=== PATIENT | male | born 1950 | race Caucasian/White ===

== ENCOUNTER → 2016-11-29 | Outpatient (CLI) | payer BC, MEDICARE | LOC: OD 08:14 | PROVIDERS: ATTEND Urology | DX: N40.1 Benign prostatic hyperplasia with lower urinary tract symptoms (principal) | CPT/HCPCS: 36415; 84153 ==

== ENCOUNTER → 2017-05-30 | Outpatient (CLI) | payer BC, MEDICARE ==
--- NOTE | 2017-05-30 15:49 | RADIOLOGY REPORT (SQ) ---
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 Coronal T2/ HASTE imaging. LIMITATIONS: None. FINDINGS: VISUALIZED UPPER ABDOMEN: Limited evaluation. No acute or suspicious findings suggested. SEGMENTATION: No transitional anatomy. The lowest well-developed disc space is labeled L5-S1. ALIGNMENT: Anatomic. VERTEBRAE: Intact. BONE MARROW: No findings worrisome for aggressive marrow replacement process. Schmorl's node inferio r endplate of L3. DISC SIGNAL: Diffuse decreased T2 weighted intervertebral disc signal at L2-3, and L4-5. Decreased T 2 weighted intervertebral disc signal with disc space loss of height at L5-S1 POSTERIOR ELEMENTS: Generally intact. No pars defect evident. HARDWARE: None in the spine. CORD AND CONUS: Normal in size and signal intensity. Conus at the L2 level. SOFT TISSUES: No aortic aneurysm seen. No bulky retroperitoneal adenopathy or mass. No paraspinal mas s or fluid. T11-12: Mild bilateral facet hypertrophy. No central or foraminal stenosis. T12-L1: Unremarkable L1-L2: No significant spinal stenosis or exit foraminal stenosis. Mild bilateral facet hypertrophy. L2-L3: No significant spinal stenosis or exit foraminal stenosis. Mild bilateral facet hypertrophy L3-L4: Mild diffuse posterior disc bulging is present with mild to moderate bilateral facet and ligam ent hypertrophy causing borderline central canal narrowing. There is mild inferior foraminal narrowi ng without exiting L3 nerve root impingement. L4-L5: Mild diffuse posterior disc bulging is present with a tiny left paracentral disc protrusion/ h erniation with inferior migration of the extruded fragment. Extruded fragment measures about 5 mm in greatest diameter. No significant mass effect on the thecal sac or exiting L4, or proximal L5 nerve roots. Extruded fragment is best shown on axial T2 series 7, image 27 and sagittal image 9. Elsewhere at L4-5, there is minimal bilateral inferior foraminal narrowing without exiting L4 nerve r oot impingement. L5-S1: Mild diffuse posterior disc bulging is present. Mild bilateral facet hypertrophy. No central or foraminal encroachment. SACRUM: Visualized upper sacrum intact. OTHER: No other significant findings. IMPRESSION: Mild diffuse degenerative changes without high-grade central or foraminal encroachment. TECHNICAL DOCUMENTATION: JOB ID: [id number] [employer]- All Rights Reserved
== END ==
LOC: RAD 11:24
PROVIDERS: ATTEND Student in an Organized Health Care Education/Training Program
DX: M51.36 Other intervertebral disc degeneration, lumbar region (principal)
CPT/HCPCS: 72148

== ENCOUNTER → 2017-06-14 | Outpatient (CLI) | payer BC, MEDICARE ==
--- NOTE | 2017-06-14 09:46 | RADIOLOGY REPORT (SQ) ---
EXAM DESCRIPTION: CT CHEST WITHOUT COMPLETED DATE/TIME: 06/14/2017 7:10 am REASON FOR STUDY: COUGH (R05) R05 COUGH COMPARISON: None. TECHNIQUE: CT scan performed of the chest without intravenous contrast. Images reviewed with lung, soft tissue and bone windows. Reconstructed coronal and sagittal MPR images reviewed. All images st ored on PACS. All CT scanners at this facility use dose modulation, iterative reconstruction, and/or weight based d osing when appropriate to reduce radiation dose to as low as reasonably achievable (ALARA). [facility]: Dose Right [facility]: CareDose [facility]: Dose Right [facility]: Teradose 4D [facility]: Smart [employer] RADIATION DOSE: Up-to-date CT equipment and radiation dose reduction techniques were employed. CTDIv ol: 14.5 mGy. DLP: 593 mGy-cm. mGy. LIMITATIONS: No technical limitations. FINDINGS: LUNGS AND PLEURA: Ill-defined ground-glass opacity in the lateral right lower lobe (series 4, image 74) measuring 1.2 cm. Otherwise no masses, infiltrates, pneumothorax. No pleural effusion s, calcifications. There is a small focal defect in the left hemidiaphragm with herniation of abdomi nal fat into the lower chest. This is best demonstrated on coronal series 601, image 79 and sagittal series 602, image 48. HILAR AND MEDIASTINAL STRUCTURES: No identified masses or abnormal nodes. No obvious aneurysm. HEART AND VASCULAR STRUCTURES: No aneurysm. No pericardial effusion. UPPER ABDOMEN: No significant findings. Limited exam. THYROID AND OTHER SOFT TISSUES: No masses. No adenopathy. BONES: No significant finding. HARDWARE: None in the chest. OTHER: No other significant findings. IMPRESSION: 1. ILL-DEFINED GROUND-GLASS OPACITY IN THE LATERAL RIGHT LOWER LOBE MEASURING 1.2 CM. NONSPECIFIC. THIS COULD BE DUE TO FOCAL INFLAMMATION OR INFECTION. CONSIDER FOLLOW-UP BASED ON FLEISCHNER CRITERI A. 2. SMALL FOCAL DEFECT IN THE LEFT HEMIDIAPHRAGM WITH HERNIATION OF ABDOMINAL FAT INTO THE LOWER CHEST . 3. NO OTHER SIGNIFICANT FINDING ON NON-CONTRASTED CHEST CT. COMMENT: Fleischner Criteria for Ground Glass Nodules: >6mm ground glass single nodule: CT 6-12 mo, then CT every 2 yr until 5 yr TECHNICAL DOCUMENTATION: JOB ID: [id number] Quality ID # [id number]: Final reports with documentation of one or more dose reduction techniques (e.g., Au tomated exposure control, adjustment of the mA and/or kV according to patient size, use of iterative reconstruction technique) 2010 [employer]- All Rights Reserved
== END ==
LOC: RAD 06:58
PROVIDERS: ATTEND Allergy & Immunology
DX: R05 Cough (principal)
CPT/HCPCS: 71250

== ENCOUNTER → 2017-08-22 | Outpatient (CLI) | payer BC, MEDICARE ==
--- NOTE | 2017-08-22 17:31 | RADIOLOGY REPORT (SQ) ---
EXAM DESCRIPTION: CT CHEST WITHOUT COMPLETED DATE/TIME: 08/22/2017 3:58 pm REASON FOR STUDY: SOLITARY PULMONARY NODULE R91.1 SOLITARY PULMONARY NODULE COMPARISON: 06/14/2017 TECHNIQUE: CT scan performed of the chest without intravenous contrast. Images reviewed with lung, soft tissue and bone windows. Reconstructed coronal and sagittal MPR images reviewed. All images st ored on PACS. All CT scanners at this facility use dose modulation, iterative reconstruction, and/or weight based d osing when appropriate to reduce radiation dose to as low as reasonably achievable (ALARA). [facility]: Dose Right [facility]: CareDose [facility]: Dose Right [facility]: Teradose 4D [facility]: Smart [employer] RADIATION DOSE: Up-to-date CT equipment and radiation dose reduction techniques were employed. CTDIv ol: 14.9 mGy. DLP: 574 mGy-cm. mGy. LIMITATIONS: No technical limitations. FINDINGS: LUNGS AND PLEURA: No masses, infiltrates, pneumothorax. No pleural effusions, calcificati ons. There is a localized eventration of the left hemidiaphragm containing fat. HILAR AND MEDIASTINAL STRUCTURES: No identified masses or abnormal nodes. No obvious aneurysm. HEART AND VASCULAR STRUCTURES: No aneurysm. No pericardial effusion. UPPER ABDOMEN: No significant findings. Limited exam. THYROID AND OTHER SOFT TISSUES: No masses. No adenopathy. BONES: No significant finding. HARDWARE: None in the chest. OTHER: No other significant findings. IMPRESSION: 1. The small area of ground-glass opacification in the right lower lobe on the earlier study is no longer present. 2. There is a small eventration of the left hemidiaphragm that contains fat. TECHNICAL DOCUMENTATION: JOB ID: [id number] Quality ID # [id number]: Final reports with documentation of one or more dose reduction techniques (e.g., Au tomated exposure control, adjustment of the mA and/or kV according to patient size, use of iterative reconstruction technique) 2010 [employer]- All Rights Reserved
== END ==
LOC: RAD 15:43
PROVIDERS: ATTEND Internal Medicine Critical Care Medicine
DX: R91.1 Solitary pulmonary nodule (principal); R05 Cough; K21.9 Gastro-esophageal reflux disease without esophagitis; J30.9 Allergic rhinitis, unspecified
CPT/HCPCS: 71250

== ENCOUNTER → 2017-12-14 | Outpatient (CLI) | payer BC, MEDICARE ==
[2017-12-16 12:07] LABS: PROSTATE SPECIFIC ANTIGEN 0.5 ng/mL (0.0-4.0); PSA FREE 0.1 ng/mL
== END ==
LOC: OD 16:00
PROVIDERS: ATTEND Urology
DX: N40.1 Benign prostatic hyperplasia with lower urinary tract symptoms (principal)
CPT/HCPCS: 36415; 84154

== ENCOUNTER → 2018-05-24 | Outpatient (CLI) | payer BC, MEDICARE ==
[2018-05-24 08:18] LABS: ABSOLUTE BASOPHILS # (AUTO) 0.1 10^3/uL (0.0-0.2); ABSOLUTE EOSINOPHILS # (AUTO) 0.3 10^3/uL (0.0-0.6); ABSOLUTE LYMPHOCYTES (AUTO) 1.9 10^3/uL (0.5-4.7); ABSOLUTE MONOCYTES (AUTO) 0.5 10^3/uL (0.1-1.4); ABSOLUTE NEUT (AUTO) 3.1 10^3/uL (1.7-8.2); BASOPHILS % (AUTO) 0.9 % (0-2); EOSINOPHILS % (AUTO) 5.7 % (0-6); HEMATOCRIT 43.4 % (37.9-51.0); HEMOGLOBIN 14.9 g/dL (13.5-17.0); MEAN CORPUSCULAR HEMOGLOBIN 32.1 pg (27.0-33.4); MEAN CORPUSCULAR HGB CONC 34.3 g/dL (32.0-36.0); MEAN CORPUSCULAR VOLUME 93 fl (80-97); MONOCYTES % (AUTO) 8.1 % (3-13); PLATELET COUNT 259 10^3/uL (150-450); RED BLOOD COUNT 4.65 10^6/uL (4.35-5.55); RED CELL DISTRIBUTION WIDTH 12.6 % (11.5-14.0); SEGMENTED NEUTROPHILS % (AUTO) 52.3 % (42-78); TOTAL CELLS COUNTED % (AUTO) 100 %; WHITE BLOOD COUNT 5.8 10^3/uL (4.0-10.5)
[2018-05-24 09:02] LABS: ALANINE AMINOTRANSFERASE 29 U/L (21-72); ALKALINE PHOSPHATASE 73 U/L (38-126); ANION GAP 9 (5-19); ASPARTATE AMINO TRANSFERASE 32 U/L (17-59); BILIRUBIN,DIRECT 0.3 mg/dL (0.0-0.4); BILIRUBIN,TOTAL 0.6 mg/dL (0.2-1.3); BLOOD UREA NITROGEN 15 mg/dL (7-20); CARBON DIOXIDE 31 mmol/L (22-30); CHLORIDE 102 mmol/L (98-107); CHOLESTEROL 181.41 mg/dL (0-200); GLUCOSE 99 mg/dL (75-110); POTASSIUM 4.8 mmol/L (3.6-5.0); SODIUM 142.3 mmol/L (137-145); TOTAL PROTEIN 6.7 g/dL (6.3-8.2); TRIGLYCERIDES 121 mg/dL (<150)
[2018-05-24 09:13] LABS: DIRECT LDL 115 mg/dL (<100)
== END ==
LOC: OD 07:30
PROVIDERS: ATTEND Student in an Organized Health Care Education/Training Program
DX: Z00.00 Encounter for general adult medical examination without abnormal findings (principal); E78.2 Mixed hyperlipidemia; E53.8 Deficiency of other specified B group vitamins; E55.9 Vitamin D deficiency, unspecified; Z13.6 Encounter for screening for cardiovascular disorders
CPT/HCPCS: 36415; 80053; 80061; 82306; 82607; 85025

== ENCOUNTER 2018-11-17 20:05 | Emergency (ER) | payer BC, MEDICARE ==
[2018-11-17] MEDS ORDERED: ASPIRIN 81 MG TABLET, CHEWABLE PO ONE (20:52)
[2018-11-17 21:25] LABS: ABSOLUTE BASOPHILS # (AUTO) 0.1 10^3/uL (0.0-0.2); ABSOLUTE EOSINOPHILS # (AUTO) 0.4 10^3/uL (0.0-0.6); ABSOLUTE LYMPHOCYTES (AUTO) 2.5 10^3/uL (0.5-4.7); ABSOLUTE MONOCYTES (AUTO) 0.9 10^3/uL (0.1-1.4); ABSOLUTE NEUT (AUTO) 4.4 10^3/uL (1.7-8.2); BASOPHILS % (AUTO) 0.8 % (0-2); EOSINOPHILS % (AUTO) 5.2 % (0-6); HEMATOCRIT 42.3 % (37.9-51.0); LYMPHOCYTES % (AUTO) 30.4 % (13-45); MEAN CORPUSCULAR HEMOGLOBIN 32.7 pg (27.0-33.4); MEAN CORPUSCULAR HGB CONC 35.4 g/dL (32.0-36.0); MEAN CORPUSCULAR VOLUME 93 fl (80-97); MONOCYTES % (AUTO) 10.4 % (3-13); PLATELET COUNT 290 10^3/uL (150-450); RED BLOOD COUNT 4.57 10^6/uL (4.35-5.55); RED CELL DISTRIBUTION WIDTH 12.5 % (11.5-14.0); SEGMENTED NEUTROPHILS % (AUTO) 53.2 % (42-78); TOTAL CELLS COUNTED % (AUTO) 100 %; WHITE BLOOD COUNT 8.4 10^3/uL (4.0-10.5)
--- NOTE | 2018-11-17 21:32 | RADIOLOGY REPORT (SQ) ---
EXAM DESCRIPTION: XR CHEST 1 VIEW COMPLETED DATE/TME: 11/17/2018 20:52 CLINICAL HISTORY: 68 years, Male, chest pain COMPARISON: EXAM DESCRIPTION: CLINICAL HISTORY: chest pain COMPARISON: None. FINDINGS: Single view of the chest is submitted. Cardiac silhouette is normal. No focal parenchymal or pleural disease. No acute bony abnormality. There is no significant pulmonary vascular engorgement. IMPRESSION: No evidence of acute cardiopulmonary disease.
[2018-11-17 21:46] LABS: ALANINE AMINOTRANSFERASE 25 U/L (21-72); ALBUMIN 4.2 g/dL (3.5-5.0); ALKALINE PHOSPHATASE 68 U/L (38-126); ANION GAP 8 (5-19); ASPARTATE AMINO TRANSFERASE 31 U/L (17-59); BILIRUBIN,DIRECT 0.2 mg/dL (0.0-0.4); BILIRUBIN,TOTAL 0.3 mg/dL (0.2-1.3); BLOOD UREA NITROGEN 19 mg/dL (7-20); CALCIUM 9.3 mg/dL (8.4-10.2); CARBON DIOXIDE 30 mmol/L (22-30); CHLORIDE 100 mmol/L (98-107); CREATINE KINASE 115 U/L (55-170); GLUCOSE 86 mg/dL (75-110); POTASSIUM 4.2 mmol/L (3.6-5.0); SODIUM 137.6 mmol/L (137-145); TOTAL PROTEIN 6.9 g/dL (6.3-8.2)
[2018-11-17 21:57] LABS: CREATINE KINASE MB 0.85 ng/mL (<4.55)
[2018-11-17 22:02] LABS: TROPONIN I < 0.012 ng/mL
[2018-11-18] MEDS ORDERED: METOCLOPRAMIDE HCL ORAL SOLN 10 MG/10 ML UDCUP PO ONE (01:38)
[2018-11-18] MEDS ORDERED: IPRATROPIUM/ALBUTEROL 0.5-2.5 MG/3 ML AMPUL NEB ONE (01:38)
[2018-11-18] MEDS ORDERED: LIDOCAINE 2% VISCOUS SOLN 20 ML UDCUP PO ONE (01:38)
[2018-11-18] MEDS ORDERED: MAG HYDROX/AL HYDROX/SIMETH SUSP 30 ML UDCUP PO ONE (01:38)
--- NOTE | 2018-11-18 01:40 | ER Document Report ---
Addendum entered and electronically signed by ZOYA WILKES FNP 11/18/18 12:23: Course - Re-evaluation Re-evalutation: 11/18/18 Patient's chest x-ray is normal. No infiltrate noted. His laboratory studies are unremarkable. - Vital Signs Vital signs: Temp Pulse Resp BP Pulse Ox 97.9 F 73 15 124/88 H 92 11/17/18 20:18 11/17/18 20:18 11/18/18 02:01 11/18/18 02:01 11/18/18 02:01 - Laboratory Result Diagrams: 11/17/18 20:46 11/17/18 20:46 - EKG Interpretation by Me Additional EKG results interpreted by me: 11/18/18 20:13 Sinus rhythm. Heart rate 74; NC 168; QRS 86; QT 392; QTC 435. No ST elevations or depressions. Original Note: ED General - General Chief Complaint: Chest Pain Stated Complaint: CHEST PRESSURE Time Seen by Provider: 11/18/18 01:32 Notes: Patient is a 68-year-old male who presents to the emergency department with a chief complaint of pressure in his chest. He states he was eating dinner and he felt a piece of food was stuck in his throat. He then took a drink and he continued to feel the same sensation of something being stuck and developed some chest pressure and tightness. He wanted to be safe and presented to the emergency department. Denies nausea, vomiting, projectile vomiting, diarrhea, fever, sinus pressure, or abdominal pain. He has a history of hypertension and hyperlipidemia. TRAVEL OUTSIDE OF THE [place] IN LAST 30 DAYS: No - Related Data Allergies/Adverse Reactions: moxifloxacin HCl [From Avelox] Allergy (Mild, Verified 04/14/15 19:04) pink all over sulfamethoxazole [From Septra] Allergy (Mild, Verified 04/14/15 19:04) itching trimethoprim [From Septra] Allergy (Mild, Verified 04/14/15 19:04) itching levofloxacin [Levofloxacin] Allergy (Unknown, Verified 04/14/15 19:04) Sulfa (Sulfonamide Antibiotics) Allergy (Unknown, Verified 04/14/15 19:04) Past Medical History - Social History Smoking Status: Unknown if Ever Smoked Lives with: Family Family History: Reviewed & Not Pertinent - Past Medical History Cardiac Medical History: Reports: Hx Coronary Artery Disease Denies: Hx Heart Attack, Hx Hypertension Pulmonary Medical History: Reports: Hx Asthma Denies: Hx Bronchitis, Hx COPD, Hx Pneumonia Neurological Medical History: Reports: Hx Seizures - 2012, ONE AND ONLY TIME. Denies: Hx Cerebrovascular Accident Musculoskeletal Medical History: Reports Hx Arthritis - Immunizations Hx Diphtheria, Pertussis, Tetanus Vaccination: Yes Hx Pneumococcal Vaccination: 09/14/13 Review of Systems - Review of Systems Notes: REVIEW OF SYSTEMS: CONSTITUTIONAL : Denies recent illness. Denies recent unintentional weight loss. Denies fever, chills, or sweats. EENT: See HPI CARDIOVASCULAR: See HPI RESPIRATORY: See HPI GASTROINTESTINAL: See HPI GENITOURINARY: Denies difficulty urinating, burning, blood in urine, urgency or frequency. MUSCULOSKELETAL: Denies neck and back pain. Denies joint pain or swelling. SKIN: Denies rash, itchiness, or lesions HEMATOLOGIC : Denies easy bruising or bleeding. LYMPHATIC: Denies swollen, painful, enlarged glands. NEUROLOGICAL: Denies no numbness or tingling denies weakness. Denies headache. Denies altered mental status. Denies alteration in speech. PSYCHIATRIC: Denies stress, anxiety, alteration in sleep patterns, or depress ion. All other systems reviewed and negative. Physical Exam - Vital signs Vitals: Temp Pulse BP Pulse Ox 97.9 F 73 150/81 H 96 11/17/18 20:18 11/17/18 20:18 11/17/18 20:18 11/17/18 20:18 - Notes Notes: PHYSICAL EXAMINATION: GENERAL: Appears well, healthy, well-nourished, no acute distress. HEAD: Normocephalic, atraumatic. EYES: PERRL, conjunctiva normal, all extraocular movements intact, sclera nonicteric ENT: Moist mucous membranes. NECK: Supple, no noticeable swelling, redness, rash. Normal range of motion. LUNGS: Equal breath sounds bilaterally and clear to auscultation. No wheezes rales or rhonchi. CARDIOVASCULAR: S1-S2, regular rate, regular rhythm. Radial pulses 2+, normal. ABDOMEN: Normoactive bowel sounds. Soft, nontender, no guarding, no rebound tenderness, and no masses palpated. EXTREMITIES: Normal strength and range of motion, no pitting or edema. No cyanosis. NEUROLOGICAL: Moves all extremities upon command. Strength 5/5 in all extremities. PSYCH: Normal mood, normal affect. SKIN: Warm, dry. No rash, lesions, ulcerations noted. Normal skin turgor. Course - Re-evaluation Re-evalutation: 11/18/18 01:42 Patient's initial troponin is negative, along with the second. States that he does feel better. He also states that 3 weeks ago he was treated with antibiotics for a possible pneumonia. He has finished his course of antibiotics and at the time of my assessment his oxygen saturation was 89%. He also has wheezes in his right lower lobe. He will be given a DuoNeb treatment. He also be given a GI cocktail for his symptoms. 11/18/18 02:40 I have reassessed the patient and he has complete resolution of his symptoms. His lungs sounds are improved. He states that he has an albuterol inhaler at home. I educated the patient on using his albuterol inhaler every 4-6 hours as needed. I discussed the patient's lab results and diagnostic tests with him. Verbal discharge instructions were given to the patient. They verbalized understanding. They are stable for discharge. Documentation was completed using voice recognition software, therefore there may be some unintended grammatical errors. - Vital Signs Vital signs: Temp Pulse Resp BP Pulse Ox 97.9 F 73 15 124/88 H 92 11/17/18 20:18 11/17/18 20:18 11/18/18 02:01 11/18/18 02:01 11/18/18 02:01 - Laboratory Result Diagrams: 11/17/18 20:46 11/17/18 20:46 Discharge - Discharge Clinical Impression: Chest pressure Condition: Stable Disposition: HOME, SELF-CARE Additional Instructions: You were seen today in the emergency department for chest pressure and something caught in your throat. Your laboratory studies are normal. Your chest x-ray is normal. You are given medication to help you with that. You still have whee zing from the infection you had from your primary care doctor. He received a breathing treatment here in the emergency department. Please continue to take your albuterol inhaler. You may take 2 puffs every 4-6 hours as needed. If you develop a fever greater than 100.4 F, have worsening symptoms, or have symptoms that are worrisome to you, please return to the emergency department. Referrals: ROBBY MC, DO [Primary Care Provider] - Follow up as needed
[2018-11-18 02:17] VITALS: BP 124/88
--- NOTE | 2018-11-18 12:42 | EKG REPORT ---
SEVERITY:- OTHERWISE NORMAL ECG - SINUS RHYTHM LEFT AXIS DEVIATION : Confirmed by: Kaylie Jimenez MD 18-Nov-2018 12:40:59
== END 2018-11-18 02:51 | disposition home or self-care (01) ==
LOC: ER 20:05
DX: R07.89 Other chest pain (principal); R09.89 Other specified symptoms and signs involving the circulatory and respiratory systems; J45.909 Unspecified asthma, uncomplicated; I25.10 Atherosclerotic heart disease of native coronary artery without angina pectoris; Z88.1 Allergy status to other antibiotic agents; Z88.2 Allergy status to sulfonamides
CPT/HCPCS: 93005; 94640; 99285; 36415; 82553; 82550; 85025; 80053; 84484; 71045; 93010; J3490; J7620

== ENCOUNTER → 2018-11-22 | Outpatient (CLI) | payer BC, MEDICARE ==
[2018-11-22 17:21] LABS: ABSOLUTE BASOPHILS # (AUTO) 0.1 10^3/uL (0.0-0.2); ABSOLUTE EOSINOPHILS # (AUTO) 0.5 10^3/uL (0.0-0.6); ABSOLUTE LYMPHOCYTES (AUTO) 2.6 10^3/uL (0.5-4.7); ABSOLUTE MONOCYTES (AUTO) 0.9 10^3/uL (0.1-1.4); ABSOLUTE NEUT (AUTO) 4.2 10^3/uL (1.7-8.2); BASOPHILS % (AUTO) 0.8 % (0-2); EOSINOPHILS % (AUTO) 6.6 % (0-6); HEMATOCRIT 41.5 % (37.9-51.0); HEMOGLOBIN 14.5 g/dL (13.5-17.0); LYMPHOCYTES % (AUTO) 31.2 % (13-45); MEAN CORPUSCULAR HEMOGLOBIN 32.2 pg (27.0-33.4); MEAN CORPUSCULAR HGB CONC 34.9 g/dL (32.0-36.0); MEAN CORPUSCULAR VOLUME 92 fl (80-97); MONOCYTES % (AUTO) 10.5 % (3-13); PLATELET COUNT 255 10^3/uL (150-450); RED CELL DISTRIBUTION WIDTH 12.1 % (11.5-14.0); SEGMENTED NEUTROPHILS % (AUTO) 50.9 % (42-78); TOTAL CELLS COUNTED % (AUTO) 100 %; WHITE BLOOD COUNT 8.2 10^3/uL (4.0-10.5)
== END ==
LOC: OD 16:13
PROVIDERS: ATTEND Student in an Organized Health Care Education/Training Program
DX: J45.50 Severe persistent asthma, uncomplicated (principal)
CPT/HCPCS: 36415; 85025

== ENCOUNTER → 2019-05-30 | Outpatient (CLI) | payer BC, MEDICARE ==
[2019-05-30 08:16] LABS: HEMATOCRIT 43.5 % (37.9-51.0); HEMOGLOBIN 14.8 g/dL (13.5-17.0); MEAN CORPUSCULAR HEMOGLOBIN 31.4 pg (27.0-33.4); MEAN CORPUSCULAR VOLUME 93 fl (80-97); PLATELET COUNT 254 10^3/uL (150-450); RED BLOOD COUNT 4.71 10^6/uL (4.35-5.55); RED CELL DISTRIBUTION WIDTH 12.8 % (11.5-14.0); WHITE BLOOD COUNT 7.5 10^3/uL (4.0-10.5)
[2019-05-30 08:47] LABS: ALANINE AMINOTRANSFERASE 28 U/L (21-72); ALKALINE PHOSPHATASE 65 U/L (38-126); ANION GAP 7 (5-19); ASPARTATE AMINO TRANSFERASE 25 U/L (17-59); BILIRUBIN,DIRECT 0.3 mg/dL (0.0-0.4); BILIRUBIN,TOTAL 0.5 mg/dL (0.2-1.3); BLOOD UREA NITROGEN 19 mg/dL (7-20); CARBON DIOXIDE 30 mmol/L (22-30); CHLORIDE 102 mmol/L (98-107); CHOLESTEROL 210.77 mg/dL (0-200); GLUCOSE 98 mg/dL (75-110); POTASSIUM 4.4 mmol/L (3.6-5.0); TOTAL PROTEIN 6.6 g/dL (6.3-8.2); TRIGLYCERIDES 144 mg/dL (<150)
[2019-05-30 08:57] LABS: DIRECT LDL 139 mg/dL (<100)
== END ==
LOC: OD 07:02
PROVIDERS: ATTEND Physician Assistant
DX: I10 Essential (primary) hypertension (principal); E78.5 Hyperlipidemia, unspecified; N40.0 Benign prostatic hyperplasia without lower urinary tract symptoms; Z13.1 Encounter for screening for diabetes mellitus
CPT/HCPCS: 36415; 80053; 80061; 83036; 84153; 84443; 85027

== ENCOUNTER → 2020-06-03 | Outpatient (CLI) | payer BC, MEDICARE ==
[2020-06-03 07:54] LABS: HEMATOCRIT 42.9 % (37.9-51.0); HEMOGLOBIN 14.9 g/dL (13.5-17.0); MEAN CORPUSCULAR HEMOGLOBIN 32.1 pg (27.0-33.4); MEAN CORPUSCULAR HGB CONC 34.8 g/dL (32.0-36.0); MEAN CORPUSCULAR VOLUME 92 fl (80-97); PLATELET COUNT 252 10^3/uL (150-450); RED BLOOD COUNT 4.64 10^6/uL (4.35-5.55); RED CELL DISTRIBUTION WIDTH 12.7 % (11.5-14.0); WHITE BLOOD COUNT 5.6 10^3/uL (4.0-10.5)
[2020-06-03 08:26] LABS: ALBUMIN 4.4 g/dL (3.5-5.0); ALKALINE PHOSPHATASE 71 U/L (38-126); ANION GAP 6 (5-19); ASPARTATE AMINO TRANSFERASE 41 U/L (17-59); BILIRUBIN,TOTAL 0.7 mg/dL (0.2-1.3); BLOOD UREA NITROGEN 14 mg/dL (7-20); CALCIUM 9.1 mg/dL (8.4-10.2); CARBON DIOXIDE 28 mmol/L (22-30); CHLORIDE 100 mmol/L (98-107); CHOLESTEROL 202.48 mg/dL (0-200); GLUCOSE 110 mg/dL (75-110); POTASSIUM 4.2 mmol/L (3.6-5.0); TRIGLYCERIDES 134 mg/dL (<150)
[2020-06-03 08:36] LABS: DIRECT LDL 133 mg/dL (<100)
== END ==
LOC: OD 07:17
PROVIDERS: ATTEND Physician Assistant
DX: I10 Essential (primary) hypertension (principal); E78.5 Hyperlipidemia, unspecified; N40.0 Benign prostatic hyperplasia without lower urinary tract symptoms; Z13.9 Encounter for screening, unspecified; Z13.1 Encounter for screening for diabetes mellitus
CPT/HCPCS: 36415; 80053; 80061; 83036; 84153; 84436; 84443; 85027

== ENCOUNTER → 2020-08-30 | Outpatient (CLI) | payer BC, MEDICARE ==
[2020-08-30 09:34] LABS: ANION GAP 11 (5-19); BLOOD UREA NITROGEN 13 mg/dL (7-20); CALCIUM 9.8 mg/dL (8.4-10.2); CARBON DIOXIDE 27 mmol/L (22-30); CHLORIDE 99 mmol/L (98-107); CHOLESTEROL 139.71 mg/dL (0-200); GLUCOSE 108 mg/dL (75-110); POTASSIUM 4.5 mmol/L (3.6-5.0); TRIGLYCERIDES 56 mg/dL (<150)
[2020-08-30 09:45] LABS: DIRECT LDL 71 mg/dL (<100)
== END ==
LOC: OD 08:06
PROVIDERS: ATTEND Physician Assistant
DX: E78.00 Pure hypercholesterolemia, unspecified (principal); E87.1 Hypo-osmolality and hyponatremia
CPT/HCPCS: 36415; 80048; 80061